=== PATIENT | female | born 1935 | race Caucasian/White ===

== ENCOUNTER 2024-11-17 10:53 | Emergency (ER) | payer MEDICARE, OTHER ==
[~2024-11-17] VITALS: Ht 160 cm; Wt 81.2 kg
[~2024-11-17 10:53] MED LIST: ALPR1TAB7 PO; ASPI81TA48 PO; CALC1TAB3 PO; CHOL40002 PO; DULO30CA30 PO; L GA1CAP PO; LEVO112T61 PO; LISI10TA27 PO; MULT1TAB PO; SYN0.1T PO; VITA100049 PO
--- NOTE | 2024-11-17 11:16 | ELECTROCARDIOGRAPH REPORT ---
[facility] Test Date: 2024-11-17 Test Time: 11:12:54 Pat Name: MONICA ASKEW Department: [facility]- Patient ID: [id number] Room: Gender: F Pear Picker: : [phone] Requested By: ISABEL CUEVAS Order Number: [id number] Reading MD: Dr. Turner Engle Measurements Intervals [place] Rate: 79 P: 0 IA: 140 QRS: -29 QRSD: 96 T: 44 QT: 455 QTc: 522 Interpretive Statements Sinus rhythm Probable left ventricular hypertrophy Prolonged QT interval Electronically Signed On 11-17-2024 18:28:[address] Turner Engle Please click the below link to view image of tracing.
--- NOTE | 2024-11-17 12:39 | Physician Documentation ---
History of Present Illness ~ Chief Complaint: See Chief Complaint Stated Complaint: MEDICATION COMPLICATION Time Seen by MD: 12:30 OK to notify your PCP?: Yes Primary Medical Doctor: subhash/ elyssa Mode of Arrival: POSanjay HPI 69-year-old female patient came to the emergency room because right-sided facial pain. She told me that she saw her primary care doctor three days ago and the doctor thought she asked migraine or sinus headache and put her on m edications. Despite these medication she is getting worse and she started noticing blister in right side of the face. The blisters are also in her eyelids. She also noticed that the white part of her eye is red. The pain in her head and face is sharp and quite severe and shooting. No other complaints. Medication Reconciliation Allergies: Coded Allergies: Penicillins (Unverified Allergy, Intermediate, 06/23/09) codeine (Unverified Allergy, Intermediate, 06/23/09) Uncoded Allergies: SULFA (Allergy, Intermediate, 06/23/09) Scheduled Alprazolam (Alprazolam), PO QID, (Reported) Aspirin (Aspirin EC), PO DAILY, (Reported) Calcium Carbonate/Vitamin D3 (Caltrate 600 W-D Tablet), PO DAILY, (Reported) Cholecalciferol (Vitamin D3) (Vitamin D3), 4,000 UNIT PO DAILY, (Reported) Duloxetine Hcl (Cymbalta), 30 MG PO DAILY, (Reported) Ganciclovir (Zirgan), 1 DROP RIGHTEYE 5XD L Gasseri/B Bifidum/B Longum ([facility] Capsule), 1 EACH PO DAILY, (Reported) Levothyroxine Sodium* (Synthroid*), 100 MCG PO DAILY, (Reported) Levothyroxine Sodium* (Synthroid*), 112 MCG PO DAILY, (Reported) Lisinopril (Lisinopril), 10 MG PO DAILY, (Reported) Multivitamins W-Minerals/Lut (Centrum Silver Tablet), 1 EACH PO DAILY, (Reported) Valacyclovir HCl (Valacyclovir), 1 TAB PO Q8H Vitamin E Mixed (Vitamin E), 1,000 UNIT PO DAILY, (Reported) Scheduled PRN Hydrocodone Bit/Acetaminophen (Hydrocodone-Apap 10-325 Tablet), 1 TABLET PO Q6H PRN for moderate or severe pain 4-10 Pregabalin (Lyrica), 1 CAP PO Q8H PRN for pain Review of Systems ROS As stated above in the HPI, otherwise all systems are reviewed and negative. Physical Exam Vital Signs: Temperature: 98.5, Source: Oral, Heart Rate: 80, Respiratory Rate: 16, BP: 183/86, Pulse Oximetry: 94, Weight: 81.200 Oxygen Flow Rate: 0 Physical Exam Reviewed vital signs and she is in distress and her blood pressure is slightly elevated otherwise well within normal range. Const: Patient is in the in distress Head: Atraumatic Eyes: Normal Conjunctiva LALITHA EOMI, right eye has congestion and redness. Her vision as not changed. ENT: Normal External Ears, Nose and Mouth. Moist mucous membranes Neck: Full range of motion. No meningismus Resp: Clear to auscultation bilaterally. Normal work of breathing Cardio: Regular rate and rhythm, no murmurs. Skin well perfused Abd: Soft, non-tender, non-distended. Normal bowel sounds. No rebound or guarding Skin: No petechiae or rashes. Warm and dry Back: No midline or flank tenderness Ext: No cyanosis, or edema Neuro: Awake and alert Psych: Normal Mood and Affect Progress Results/Orders Results/Orders Completed Orders - ISABEL CUEVAS MD Electrocardiogram (11/17/24 11:07) Valacyclovir Tablet (Valtrex Tablet) (11/17/24 12:40) Tetracaine 0.5% Ophth Drops (Tetravisc 0 (11/17/24 12:40) Medications Received in ER Medications (Trade) Dose Ordered Sig/Eloise Route PRN Reason Start Time Stop Time Status Last Admin Dose Admin (Valtrex tablet) 500 mg ONCE ONCE PO 11/17/24 12:40 11/17/24 12:41 DC 11/17/24 13:23 500 MG (TETRAVISC 0.5% ophth drops 5ml) 2 drop ONCE ONCE RIGHTEYE 11/17/24 12:40 11/17/24 12:47 DC 11/17/24 13:23 2 DROP Vital Signs 11/17/24 11/17/24 11:00 13:56 Temp 98.5 98.5 Pulse 80 86 Resp 16 18 B/P (MAP) 183/86 160/98 Pulse Ox 94 100 O2 Flow Rate 0 Medical Decision Making Findings Patient's EKG shows sinus rhythm at a rate of 79 with LVH. No ischemic changes. Left axis deviation and slightly elevated QTC. (ED MD interpretation) During the physical examination, the findings suggestive of acute life- threatening condition such as JVD, tracheal deviation, acidotic breathing, noisy stridorous breath sounds, pulses paradoxus, muffled heart sounds, unequal breath sounds, abdominal rigidity and rebound tenderness, focal neurological deficits, cool clammy skin, severe hypotension, severe tachycardia or bradycardia are absent. 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 According to the UpToDate patient needs to see door repairer bus in a few days. I will started her on antiviral by mouth as well as antiviral ophthalmological drops in the meantime. She was see her principal architectural firm [employer] or door repairer bus tomorrow morning. I also put her on Lyrica and [place] for pain. DISCLAIMER Inadvertent spelling and grammatical errors,inadvertent used building materials yard worker errors,syntax errors, grammatical errors, and spelling errors are likely due to EMR/dictation software use and do not reflect on the overall quality of patient care. Note that the electronic time recorded on this note does not necessarily reflect the actual time of the patient encounter. Departure Disposition: 01 HOME / SELF CARE / HOMELESS Impression: Primary Impression: Herpes simplex conjunctivitis of right eye Condition: Stable Referrals: NO PRIMARY CARE PROVIDER (PCP) Prescriptions Hydrocodone Bit/Acetaminophen (Hydrocodone-Apap 10-325 Tablet) 10mg/325mg Tablet 1 TABLET PO Q6H PRN for moderate or severe pain 4-10, #20 TAB Prov: ISABEL CUEVAS MD 11/17/24 Pregabalin (Lyrica) 50 Mg Capsule 1 CAP PO Q8H PRN for pain, #30 CAP 0 Refills Prov: ISABEL CUEVAS MD 11/17/24 Ganciclovir (Zirgan) 0.15 % Gel..gram. 1 DROP RIGHTEYE 5XD, #5 GM 0 Refills Prov: ISABEL CUEVAS MD 11/17/24 Valacyclovir HCl (Valacyclovir) 500 Mg Tablet 1 TAB PO Q8H, #30 TAB 0 Refills Prov: ISABEL CUEVAS MD 11/17/24 Education Educated: Patient Educated regarding: diagnosis, treatment, need for follow up Signature Scribe Signature: x Attestation: ISABEL Lopez MD November 17, 2024 12:39
[2024-11-17] MEDS: TETRACAINE 0.5% 4 ML OPHTHALMIC DROPS RIGHTEYE ONE (13:23)
[2024-11-17] MEDS: valacyclovir 500mg tablet PO ONE (13:23)
[2024-11-17] MEDS ORDERED: VALA500T41 PO (13:44)
[2024-11-17] MEDS ORDERED: HYDR-3973 PO (13:44)
[2024-11-17] MEDS ORDERED: PREG50CA PO (13:44)
[2024-11-17] MEDS ORDERED: GANC5GEL2 RIGHTEYE (13:44)
[2024-11-17 13:56] VITALS: BP 160/98; PULSE 86; RESP 18; TEMP 98.5; O2SAT 100
== END 2024-11-17 13:59 | disposition home or self-care (01) ==
LOC: ER 10:54
DX: B00.53 Herpesviral conjunctivitis (principal); Z88.0 Allergy status to penicillin; Z88.5 Allergy status to narcotic agent; Z88.8 Allergy status to other drugs, medicaments and biological substances; Z79.82 Long term (current) use of aspirin
CPT/HCPCS: 93005; 99283